=== PATIENT | male | born 1960 | race Caucasian/White ===

== ENCOUNTER 2022-05-11 02:45 | Emergency (ER) | payer OTHER ==
[2022-05-11 03:00] LABS: #Basophils 0.1 thou/uL (0.0-0.2); #Eosinphils 0.2 thou/uL (0.0-0.7); #Lymphocytes 2.2 thou/uL (1.20-3.40); #Monocytes 0.9 thou/uL (0.11-0.59); #Neutrophils 5.5 thou/uL (1.40-6.50); %Basophils 1.3 % (0.0-1.0); %Eosinophils 2.6 % (0.0-10.0); %Lymphocytes 24.3 % (21.0-51.0); %Neutrophils 61.7 % (42.0-75.0); Hemoglobin 14.4 g/dL (14.0-18.0); Mean Corpuscular HGB CONC 31.6 g/dL (32.0-36.0); Mean Corpuscular Hemoglobin 29.2 pg (27.0-31.0); Mean Corpuscular Volume 92.5 fl (78.0-98.0); Mean Platelet Volume 7.8 fL (7.4-10.4); Platelet Count 308 10x3/uL (130-400); RBC Distribution Width 12.7 % (11.5-14.5); Red Blood Cell (RBC) Count 4.93 mill/uL (4.70-6.10)
[2022-05-11] MEDS ORDERED: Aspirin Chewable 81 MG TAB ONE (03:03)
[2022-05-11] MEDS ORDERED: Nitroglycerin 0.4 MG TAB (25 Tab Bottle) ONE (03:03)
[2022-05-11] MEDS ORDERED: Ondansetron PF 4 MG/2 ML Vial ONE (03:13)
[2022-05-11 03:19] LABS: ALT (SGPT) 11 U/L (8-55); AST (SGOT) 14 U/L (5-34); Albumin 4.2 g/dL (3.5-5.0); Alkaline Phosphatase 90 U/L (40-110); Anion Gap 11 mmol/L (10-20); BUN (Urea Nitrogen) 14 mg/dL (8.4-25.7); Bilirubin, Total 0.4 mg/dL (0.2-1.2); Calc. Creatinine Clearance 0 mL/min (70-130); Calcium 9.3 mg/dL (7.8-10.44); Carbon Dioxide 27 mmol/L (22-29); Chloride 103 mmol/L (98-107); Estimated GFR 76; Globulin 3.9 g/dL (2.4-3.5); Glucose 128 mg/dL (70-105); Lipase 24 U/L (8-78); Potassium 3.8 mmol/L (3.5-5.1); Protein, Total 8.1 g/dL (6.0-8.3); Sodium 137 mmol/L (136-145)
[2022-05-11] MEDS ORDERED: Morphine 4 MG/ML VIAL ONE (03:20)
[2022-05-11 03:35] LABS: INR-International Normal Ratio 0.9; Prothrombin Time 12.8 sec (12.0-14.7)
[2022-05-11 03:36] LABS: PTT 28.3 sec (22.9-36.1)
[2022-05-11] MEDS ORDERED: Enoxaparin Sodium 100 MG/ML SYRINGE ONE (03:54)
== END 2022-05-11 04:00 | disposition short-term general hospital (02) ==
LOC: NAV ERS 02:45
DX: R07.9 Chest pain, unspecified (principal); I10 Essential (primary) hypertension; E78.5 Hyperlipidemia, unspecified; I25.10 Atherosclerotic heart disease of native coronary artery without angina pectoris; K21.9 Gastro-esophageal reflux disease without esophagitis; Z87.891 Personal history of nicotine dependence; Z79.899 Other long term (current) drug therapy
CPT/HCPCS: 71045; 80053; 83690; 84484; 85025; 85379; 85610; 85730; 93005; 96372; 96374; 96375; J1650; J2270; J2405